=== PATIENT | male | born 1990 | race Caucasian/White ===

== ENCOUNTER 2017-04-29 23:55 | Emergency (ER) | payer OTHER ==
[~2017-04-29] VITALS: Ht 170.2 cm; Wt 68.0 kg
[~2017-04-29 23:55] MED LIST: ACETAMINOPHEN-1 EAC1 PO; AMITRIPTYLINE H50 M3 PO; ATIVAN1 MG PO; BENADRYL25 MG PO; BENTYL20 MG PO; CEFDINIR300 MG PO; CIPRO500 MG PO; FLAGYL500 MG PO; FLEXERIL PO; FLONASE 0.05%50 MCG NASAL; HYDROCODON-ACE1 EAC7 PO; HYDROCODON-ACE1 EACH PO; HYDROCODONE-AP1 EAC6 PO; IBUPROFEN 600600 M1 PO; IBUPROFEN 800800 M1 PO; IBUPROFEN 800800 MG PO; NICOTINE TRANSD21 M1 TOP; NOHOMEMEDICATIONS; NORCO 5-325 TA1 EAC1 PO; NORCO 5-325 TA1 EACH PO; OMEPRAZOLE 20 M20 M1 PO; ONDANSETRON HCL4 M2 PO; PERCOCET 5-3251 EACH PO; PERCOCET PO; PHENERGAN 25 MG25 M1; PHENERGAN 25 MG25 M1 PO; PHENERGAN 25 MG25 M1 RECTAL; PHENERGAN 25 MG25 MG PO; PHENERGAN12.5 M2 RECTAL; PROBIOTIC1 EAC1 PO; PROMETHAZINE HC25 MG RECTAL; PROMETHAZINE12.5 M4 RE; REGLAN 10 MG TA10 MG PO; ROBAXIN500 MG PO; ZANTAC 150MG T150 M1 PO; ZANTAC 150MG T150 MG PO; ZOFRAN ODT4 MG SUBLING
[2017-04-30 00:39] LABS: HEMATOCRIT 43.2 % (42.0-52.0); HEMOGLOBIN 14.3 gm/dL (14.0-18.0); MCH 28.8 pg (26.0-34.0); MCV 87.4 fL (80.0-100.0); MPV 8.2 fl. (7.2-11.1); NUCLEATED RBCS 0 /100WBC; PLATELET COUNT* 321 thou/uL (150-400); RBC 4.95 mil/uL (4.50-6.00); RDW-CV 14.5 % (10.5-14.5); WBC 20.3 thou/uL (4.0-11.0)
[2017-04-30 00:53] LABS: CALCIUM 9.2 mg/dL (8.5-10.1); CREATININE 0.9 mg/dL (0.6-1.3); POTASSIUM 3.7 mmol/L (3.5-5.1)
[2017-04-30 00:55] LABS: TOTAL BILIRUBIN 0.1 mg/dL (<0.1-1.0); TOTAL PROTEIN 7.7 g/dL (6.4-8.2)
[2017-04-30 02:06] LABS: ABSOLUTE LYMPHOCYTES 1.6 thou/uL (0.8-5.3); ABSOLUTE MONOCYTES 0.6 thou/uL (0.0-1.2); ABSOLUTE NEUTROPHILS 18.1 thou/uL (1.6-8.1); PLATELET ESTIMATE ADEQUATE
[2017-04-30 02:32] LABS: URINE BILIRUBIN NEGATIVE (Negative); URINE BLOOD NEGATIVE (Negative); URINE CLARITY CLEAR; URINE COLOR YELLOW; URINE GLUCOSE-RANDOM 1+ (Negative); URINE KETONES NEGATIVE (Negative); URINE LEUKOCYTES-REFLEX NEGATIVE (Negative); URINE NITRITE-REFLEX NEGATIVE (Negative); URINE PROTEIN 1+ (Negative); URINE SPECIFIC GRAVITY 1.025 (1.005-1.030); URINE UROBILINOGEN 0.2 E.U./dl (0.2-1.0)
[2017-04-30 02:37] LABS: AMP/METHAMP Negative (Negative); BARBITURATES Negative (Negative); BENZODIAZEPINES Negative (Negative); COCAINE Negative (Negative); METHADONE Negative (Negative); OPIATES Negative (Negative); PCP Negative (Negative); THC POSITIVE (Negative)
[2017-04-30] MEDS ORDERED: PHENERGAN 25 MG25 MG PO (04:45)
[2017-04-30] MEDS ORDERED: ATIVAN1 MG PO (04:45)
[2017-04-30] MEDS ORDERED: ACETAMINOPHEN-1 EAC1 PO (04:50)
[2017-04-30 05:14] VITALS: BP 139/79
[2017-05-03] MEDS ORDERED: PHENERGAN 25 MG25 M1 PO (17:26)
[2017-05-03] MEDS ORDERED: PROMS25 WY RECTAL (17:26)
[2017-09-08] MEDS ORDERED: TRAZODONE HCL50 MG PO (13:34)
[2017-09-08] MEDS ORDERED: XARELTO15 MG PO (13:34)
[2017-09-08] MEDS ORDERED: PAXIL10 MG PO (13:35)
[2017-09-08] MEDS ORDERED: ONDANSETRON HCL4 M2 PO (14:35)
[2017-09-08] MEDS ORDERED: HYDROCODONE-AP1 EAC6 PO (14:35)
== END 2017-04-30 05:27 | disposition home or self-care (01) ==
LOC: M.ERS 23:55
PROVIDERS: Personal Emergency Response Attendant
DX: R11.2 Nausea with vomiting, unspecified (principal); Z90.49 Acquired absence of other specified parts of digestive tract; F32.9 Major depressive disorder, single episode, unspecified; F17.210 Nicotine dependence, cigarettes, uncomplicated; Z88.2 Allergy status to sulfonamides; Z88.5 Allergy status to narcotic agent; Z88.8 Allergy status to other drugs, medicaments and biological substances

== ENCOUNTER 2018-04-10 07:21 | Emergency (ER) | payer OTHER ==
[~2018-04-10 07:21] MED LIST changes: +PAXIL10 MG PO; +PROMS25 WY RECTAL; +TRAZODONE HCL50 MG PO; +XARELTO15 MG PO
== END 2018-04-10 07:59 | disposition left against medical advice (07) ==
LOC: M.ERS 07:21
DX: Z53.21 Procedure and treatment not carried out due to patient leaving prior to being seen by health care provider (principal)

== ENCOUNTER 2021-02-15 17:10 | Emergency (ER) | payer OTHER ==
[~2021-02-15] VITALS: Ht 170.2 cm; Wt 70.3 kg
[2021-02-15 18:30] VITALS: BP 125/75
== END 2021-02-15 18:32 | disposition left against medical advice (07) ==
LOC: M.ERS 17:10
DX: R10.9 Unspecified abdominal pain (principal); Z53.21 Procedure and treatment not carried out due to patient leaving prior to being seen by health care provider

== ENCOUNTER 2021-03-19 07:10 | Emergency (ER) | payer OTHER | END 2021-03-19 07:36 | disposition left against medical advice (07) | LOC: M.ERS 07:10 | DX: R10.9 Unspecified abdominal pain (principal); Z53.21 Procedure and treatment not carried out due to patient leaving prior to being seen by health care provider ==